=== PATIENT | female | born 1945 | race Caucasian/White ===

== ENCOUNTER 2018-01-19 11:50 | Outpatient (CLI) | payer MEDICARE ==
[~2018-01-19 11:50] MED LIST: Gadobenate Dimeglumine 529 MG/1 ML (20ML VIAL) ONE
== END 2018-01-19 11:51 | disposition home or self-care (01) ==
LOC: BICMRI 11:50
PROVIDERS: ATTEND Psychiatry & Neurology Neurology
DX: I73.9 Peripheral vascular disease, unspecified (principal); M47.896 Other spondylosis, lumbar region; M48.56XA Collapsed vertebra, not elsewhere classified, lumbar region, initial encounter for fracture; Z98.890 Other specified postprocedural states
CPT/HCPCS: 72158; 82565; A9579

== ENCOUNTER 2020-05-18 07:22 | Day surgery (SDC) | payer MEDICARE ==
[~2020-05-18 07:22] MED LIST changes: +Fentanyl 100 MCG/2 ML VIAL ONE; +Fluorouracil 100 MG, Enoxaparin Sodium 25 MG, EPINEPHrine 0.3 MG in Ophthalmic Irrigati... IRR SCH; -Gadobenate Dimeglumine 529 MG/1 ML (20ML VIAL) ONE; +Midazolam HCl 2 mg/2 ml Vial ONE
[2020-05-18] MEDS ORDERED: Phenylephrine 2.5% Ophth Soln 5 ML BOT ONE (07:37)
[2020-05-18] MEDS ORDERED: Cyclopentolate HCl 1% 5 ML BOT ONE (07:37)
[2020-05-18] MEDS ORDERED: CEFAZOLIN 1 GM VIAL ONE (09:51)
[2020-05-18] MEDS ORDERED: Triamcinolone 40 MG/ML VIAL ONE (09:51)
[2020-05-18] MEDS ORDERED: Lidocaine 1% PF 5 ML VIAL ONE (09:51)
[2020-05-18] MEDS ORDERED: Lidocaine 4% PF 5 ML AMP ONE (09:51)
[2020-05-18] MEDS ORDERED: Maxitrol 0.1% Opth Oint 3.5 GM TUBE ONE (09:51)
[2020-05-18] MEDS ORDERED: Bupivacaine PF 0.75% SDV 10 ML ONE (09:51)
[2020-05-18] MEDS ORDERED: PROPOFOL 200 MG/20 ML VIAL ONE (09:51)
[2020-05-18] MEDS ORDERED: Indocyanine Green 25 MG/10 ML VIAL ONE (09:51)
--- NOTE | 2020-05-18 20:46 | OP ---
DATE OF PROCEDURE: 05/18/2020 PREOPERATIVE DIAGNOSIS: Epiretinal membrane, left eye. POSTOPERATIVE DIAGNOSIS: Epiretinal membrane, left eye. PROCEDURES PERFORMED: Pars plana vitrectomy, membrane peel, left eye. ANESTHESIA: Local with monitored anesthesia care. COMPLICATIONS: None. DESCRIPTION OF PROCEDURE: The patient was identified in the preoperative holding area. Appropriate informed consent for the planned surgical procedure on the left eye had been obtained. The patient was transported to the operative suite. Appropriate cardiopulmonary monitoring was established. Local anesthesia obtained using retrobulbar modified [place] Lint lid block using 50:50 mixture of 4% lidocaine and 0.75% bupivacaine. The patient was prepped and draped in usual sterile manner for ophthalmic surgery on the left eye. Lid speculum was placed in the left eye. 27-gauge trocar was placed in the conjunctiva and sclera supratemporally, inferotemporally, supranasally. Infusion line was placed inferotemporally. Light pipe and vitreous cutter were inserted into the eye. Core vitrectomy was performed. Indocyanine green dye was infused on the posterior pole x2 identifying the epiretinal membrane. This was elevated using a membrane scraper and peeled across the macula using end gripping forceps. Indirect ophthalmoscopy was used to exam the retina 360 degrees. No holes, breaks, or tears were identified. Prophylactic laser was placed behind the sclerotomy sites. Retrobulbar Kenalog and subconjunctival Ancef were placed. Antibiotic ointment was placed. Eye was patched and shielded. The patient was taken to postop recovery in good condition, having suffered no immediate perioperative complications. The patient was instructed to keep patch shield on. Avoid lifting or bending. Followup appointment with Dr. Mckeon. Job ID: [id number]
== END 2020-05-18 10:50 | disposition home or self-care (01) ==
LOC: SDC 07:22
PROVIDERS: ATTEND Ophthalmology Retina Specialist
PROC: 08T53ZZ Resection of Left Vitreous, Percutaneous Approach (ICD-10-PCS; principal; 2020-05-18)
PROC: 08NF3ZZ Release Left Retina, Percutaneous Approach (ICD-10-PCS; 2020-05-18)
DX: H35.372 Puckering of macula, left eye (principal); Z88.0 Allergy status to penicillin; Z88.8 Allergy status to other drugs, medicaments and biological substances; Z95.5 Presence of coronary angioplasty implant and graft
CPT/HCPCS: J0171; J0690; J1650; J2001; J2250; J2704; J3010; J3301; J3490; J9190